=== PATIENT | male | born 1945 | race Caucasian/White ===

== ENCOUNTER 2018-04-26 06:43 | Emergency (ER) | payer OTHER ==
[2018-04-26 06:57] VITALS: BMI 25.8
[2018-04-26] MEDS ORDERED: KETOROLAC TROMETHAMINE 60 MG/2 ML VIAL IM ONE ×2 (07:11→07:41)
--- NOTE | 2018-04-26 07:17 | PDOC ---
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 He reports he was swinging a bag onto the counter 2 weeks ago and experienced a tearing sensation in his shoulder. He had significant pain and reports it was getting better, however he rolled wrong yesterday while sleeping and had repeat increase of pain. Dr. Prasad reports he is here on vacation for 5 days and has an orthopedist he will follow-up with, however is interested in an x-ray to confirm no bony injury. The patient denies chest pain, shortness of breath, headache and dizziness. Denies fever, chills, nausea, vomit, diarrhea and constipation. Denies dysuria, frequency, urgency and hematuria. Allergies: Statins Past History - Past Medical History Allergies/Adverse Reactions: Allergies Allergy/AdvReac Type Severity Reaction Status Date / Time simvastatin Allergy Verified 04/26/18 07:34 Home Medications: Ambulatory Orders Aspirin [ASA -] 81 mg PO DAILY 04/26/18 Hydrochlorothiazide 25 mg PO DAILY 04/26/18 Losartan Potassium 25 mg PO DAILY 04/26/18 Metoprolol Tartrate 100 mg PO DAILY 04/26/18 Zolpidem Tartrate [Ambien] 5 mg PO HS #10 tablet MDD 1 04/26/18 - Suicide/Smoking/Psychosocial Hx Smoking History: Never smoked Have you smoked in the past 12 months: No Information on smoking cessation initiated: No Hx Alcohol Use: No Drug/Substance Use Hx: No Review of Systems - Review of Systems Comments:: 04/26/18 07:17 GENERAL/CONSTITUTIONAL: No fever or chills. No weakness. HEAD, EYES, EARS, NOSE AND THROAT: No change in vision. No ear pain or discharge. No sore throat. CARDIOVASCULAR: No chest pain or shortness of breath RESPIRATORY: No cough, wheezing, or hemoptysis. GASTROINTESTINAL: No nausea, vomiting, diarrhea or constipation. GENITOURINARY: No dysuria, frequency, or change in urination. MUSCULOSKELETAL: +Right shoulder pain as described. SKIN: No rash NEUROLOGIC: No headache, vertigo, loss of consciousness, or change in strength/ sensation. ENDOCRINE: No increased thirst. No abnormal weight change HEMATOLOGIC/LYMPHATIC: No anemia, easy bleeding, or history of blood clots. ALLERGIC/IMMUNOLOGIC: No hives or skin allergy. *Physical Exam - Vital Signs Last Vital Signs Temp Pulse Resp BP Pulse Ox 97.5 F L 76 18 154/109 100 04/26/18 06:54 04/26/18 06:54 04/26/18 06:54 04/26/18 06:54 04/26/18 06:54 - Physical Exam Comments: 04/26/18 07:17 GENERAL: Awake, alert, and fully oriented, in no acute distress HEAD: No signs of trauma, normocephalic, atraumatic EYES: PERRLA, EOMI, sclera anicteric, conjunctiva clear ENT: Auricles normal inspection, hearing grossly normal, nares patent, oropharynx clear without exudates. Moist mucosa NECK: Normal ROM, supple, no lymphadenopathy, JVD, or masses LUNGS: No distress, speaks full sentences, clear to auscultation bilaterally HEART: Regular rate and rhythm, normal S1 and S2, no murmurs, rubs or gallops, peripheral pulses normal and equal bilaterally. ABDOMEN: Soft, nontender, normoactive bowel sounds. No guarding, no rebound. No masses EXTREMITIES: +Patient able to range shoulder passably however cannot move beyond approximately 30 degrees abduction when engaging musculature. NEUROLOGICAL: Cranial nerves II through XII grossly intact. Normal speech, normal gait, no focal sensorimotor deficits SKIN: Warm, Dry, normal turgor, no rashes or lesions noted. ED Treatment Course - RADIOLOGY Radiology Studies Ordered: Category Date Time Status SHOULDER-RIGHT [RAD] Stat Radiology 04/26/18 07:09 Ordered Medical Decision Making - Medical Decision Making 04/26/18 07:19 Dr. Prasad is a 72 yo male w/ pmh as described who presents for evaluation of R shoulder pain. 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 Discussed anti-inflammatory as well to help with pain. As patient has previous gastric ulcer will give toradol IM 60mg for relief. 04/26/18 08:34 XR negative for acute process. Patient reporting some relief from symptoms after toradol. Patient given sling. Discharging to home for follow-up with orthopedist as needed. *DC/Admit/Observation/Transfer Diagnosis at time of Disposition: Rotator cuff injury Qualifiers: Encounter type: initial encounter Laterality: right Qualified Code(s): S46.001A - Unspecified injury of muscle(s) and tendon(s) of the rotator cuff of right shoulder, initial encounter - Discharge Dispostion Disposition: HOME - Prescriptions Prescriptions: Zolpidem Tartrate [Ambien] 5 mg PO HS #10 tablet MDD 1 - Referrals - Patient Instructions Printed Discharge Instructions: DI for Rotator Cuff Injury Additional Instructions: Please follow-up with orthopedist next week as discussed. Return to ER if any fever, chills, increased pain, loss of sensation, or other concerning symptoms. It was a pleasure meeting you today and we hope you feel better shortly. - Post Discharge Activity
[2018-04-26] MEDS ORDERED: KETOROLAC TROMETHAMINE 60 MG/2 ML VIAL ONE (07:29)
--- NOTE | 2018-04-26 07:39 | PDOC ---
Attending Attestation - HPI HPI: The patient is a 72 M, with no significant PMHx, who presents to the ER for right shoulder pain. Patient states that 2 weeks ago he was swinging a bag and injured his right shoulder. Last night he states that he was in bed and he turned the wrong way and felt immediate pain in that same shoulder. He states that he had a rotator cuff tear in that same shoulder 10 years ago. He states that he has been doing his own physical therapy in the meantime. He is currently visiting from [place] and has a appointment to see his orthopedic surgeon. He is here to receive an x-ray and to make sure nothing is broken. 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 h/o old rotator cuff injury surgically repaired in [place] which he exacerbated 2 weeks ago while swinging a bag. last night he turned in bed and reinjured. now pain with abduction. no elbow or wrist pain. no new numbness or tingling. no associated swelling. does have an orthopedist which he has a scheduled apt next week in [facility]. 04/26/18 08:38 - Physicial Exam PE: 04/26/18 07:39 awake alert . lungs clear biltarelly. heart rrr no mrg. abd soft nt nd. right shoulder with anterior ttp, decreased abduction at 90deg, and limited external rotation. elbow and wrist NT FROM. distally nv intact. no midline spinal tenderness. - Medical Decision Making 04/26/18 07:40 shenley re exercerbated roator cuff tear. plan xray r/o bony avulsion injury. will prescribe trAmadol 50 mg for pain, pt also requetsing ambien 5 mg , has taken before without problems <Kasandra Morrell - Last Filed: 04/26/18 08:39>
[2018-04-26 08:49] VITALS: BP 149/90; PULSE 79; TEMP 98.1
== END 2018-04-26 08:49 | disposition home or self-care (01) ==
LOC: JER 06:43
PROC: 3E0233Z Introduction of Anti-inflammatory into Muscle, Percutaneous Approach (ICD-10-PCS; principal; 2018-04-26)
DX: S46.011A Strain of muscle(s) and tendon(s) of the rotator cuff of right shoulder, initial encounter (principal); X50.9XXA Other and unspecified overexertion or strenuous movements or postures, initial encounter; Y93.89 Activity, other specified; Y92.89 Other specified places as the place of occurrence of the external cause; Y99.8 Other external cause status; Z95.1 Presence of aortocoronary bypass graft; Z87.19 Personal history of other diseases of the digestive system; Z79.82 Long term (current) use of aspirin
CPT/HCPCS: 73030-TC-RT-FY; 96372; 99283-25